=== PATIENT | female | born 1940 | race Caucasian/White ===

== ENCOUNTER → 2016-11-04 08:09 | Outpatient (CLI) | payer MEDICARE, OTHER ==
[2012-07-19 06:50] VITALS: BMI 26.7
== END | disposition home or self-care (01) ==
LOC: D.US 08:09
DX: R94.5 Abnormal results of liver function studies (principal)

== ENCOUNTER → 2017-07-05 08:10 | Outpatient (CLI) | payer MEDICARE, OTHER ==
[2012-07-19 06:50] VITALS: BMI 26.7
== END | disposition home or self-care (01) ==
LOC: D.US 08:10
DX: R94.5 Abnormal results of liver function studies (principal)

== ENCOUNTER → 2017-07-07 07:39 | Outpatient (CLI) | payer MEDICARE, OTHER ==
[2012-07-19 06:50] VITALS: BMI 26.7
== END | disposition home or self-care (01) ==
LOC: D.CT 07:39
DX: K76.89 Other specified diseases of liver (principal)

== ENCOUNTER → 2017-08-06 10:55 | Outpatient (CLI) | payer MEDICARE, OTHER ==
[2012-07-19 06:50] VITALS: BMI 26.7
[2017-08-06 12:15] LABS: HEMATOCRIT 41.5 % (36.0-48.0); HEMOGLOBIN 14.4 g/dL (12-16); MCH 33.1 pg (26.0-34.0); MCHC 34.7 g/dL (31.0-37.0); MCV 95.4 fL (80.0-100.0); MEAN PLATELET VOLUME 9.5 fL (7.4-10.4); PLATELET COUNT 266 10x3/uL (130-400); RBC 4.35 10x6/uL (4.00-5.40); RDW 13.1 % (11.5-14.5); WBC 8.3 10x3/uL (4.8-10.8)
[2017-08-06 12:39] LABS: % SATURATION 30 % (15-55); APTT 33.7 SECONDS (22.8-39.4); INR 1.11 (0.85-1.17); IRON 135 ug/dl (35-150); PROTIME 13.9 SECONDS (11.6-15.0); TOTAL IRON BIND CAPACITY 439 ug/dl (260-445); UNSAT IRON BIND CAPACITY 304 ug/dl (150-375)
[2017-08-06 12:44] LABS: EOSINOPHILS 1 % (0-7); LYMPHOCYTES 55 % (15-50); MONOCYTES 4 % (2-11); NEUTROPHILS 40 % (40-80); PLATELET ESTIMATE NORMAL
[2017-08-06 12:52] LABS: ALKALINE PHOSPHATASE 80 U/L (46-116); ALT (SGPT) 111 U/L (10-68); BILIRUBIN - DIRECT 0.25 mg/dL (0.00-0.30); BILIRUBIN - INDIRECT 1.07 mg/dL (0.00-1.00); BILIRUBIN - TOTAL 1.32 mg/dL (0.2-1.3); CALC OSMOLALITY 279 mosm/kg (275-300); CALCIUM 9.8 mg/dL (8.5-10.1); CARBON DIOXIDE 29.2 mmol/L (21.0-32.0); CHLORIDE - SERUM 104 mmol/L (98-107); CHOL - HDL RATIO 4.1 ratio (2.3-4.1); CHOLESTEROL, TOTAL 182 mg/dL (0-200); CREATININE - SERUM 0.6 mg/dL (0.6-1.3); FERRITIN 142 ng/mL (3-244); GAMMA GT 61 U/L (5-85); GLUCOSE 90 mg/dL (74-106); HDL CHOLESTEROL 44 mg/dL (32-96); LDL CHOLESTEROL 124 mg/dL (0-100); LDL-HDL RATIO 2.8 ratio (1.5-3.5); POTASSIUM - SERUM 4.2 mmol/L (3.5-5.1); PROTEIN - SERUM 7.8 g/dL (6.4-8.2); SODIUM 141 mmol/L (136-145); TRIGLYCERIDE 73 mg/dL (30-200); UREA NITROGEN 11 mg/dL (7-18); eGFR NON AFRICAN AMERICAN > 90 mL/min (90-120)
[2017-08-07 06:15] LABS: ALPHA FETOPROTEIN -(TUMOR MRK) 4.4 ng/mL (0.0-8.3)
[2017-08-07 08:16] LABS: HAPTOGLOBIN 111 mg/dL (34-200)
[2017-08-07 09:14] LABS: HEPATITIS C ANTIBODY 0.1 (0.0-0.9)
[2017-08-09 11:14] LABS: ANA REFLEX - DIRECT Negative (Negative)
[2017-08-09 13:13] LABS: MITOCHONDRIAL ANTIBODY 4.3 Units (0.0-20.0)
[2017-08-09 14:20] LABS: SMOOTH MUSCLE ABS (ACTIN) 21 Units (0-19)
== END | disposition home or self-care (01) ==
LOC: D.LAB 10:55
PROVIDERS: Internal Medicine Gastroenterology
DX: K76.89 Other specified diseases of liver (principal); R79.89 Other specified abnormal findings of blood chemistry; K59.09 Other constipation; R93.2 Abnormal findings on diagnostic imaging of liver and biliary tract; R94.5 Abnormal results of liver function studies

== ENCOUNTER → 2017-10-07 08:12 | Outpatient (CLI) | payer MEDICARE, OTHER ==
[2012-07-19 06:50] VITALS: BMI 26.7
== END | disposition home or self-care (01) ==
LOC: D.CT 08:12
DX: K76.89 Other specified diseases of liver (principal); R79.89 Other specified abnormal findings of blood chemistry

== ENCOUNTER → 2017-12-07 18:20 | Outpatient (CLI) | payer MEDICARE ==
[2012-07-19 06:50] VITALS: BMI 26.7
== END | disposition home or self-care (01) ==
LOC: D.MAMMO 15:45
DX: Z12.31 Encounter for screening mammogram for malignant neoplasm of breast (principal)

== ENCOUNTER → 2018-02-09 08:44 | Outpatient (CLI) | payer MEDICARE, OTHER ==
[2012-07-19 06:50] VITALS: BMI 26.7
[2018-02-09 10:14] LABS: ALBUMIN 3.7 g/dL (3.4-5.0); BILIRUBIN - DIRECT 0.22 mg/dL (0.00-0.30); BILIRUBIN - INDIRECT 0.69 mg/dL (0.00-1.00); BILIRUBIN - TOTAL 0.91 mg/dL (0.2-1.3)
[2018-02-10 11:21] LABS: ANA REFLEX - DIRECT Negative (Negative)
[2018-02-11 17:12] LABS: SMOOTH MUSCLE ABS (ACTIN) 18 Units (0-19)
== END | disposition home or self-care (01) ==
LOC: D.LAB 02-04 10:30
PROVIDERS: Internal Medicine Gastroenterology
DX: K76.89 Other specified diseases of liver (principal); Z00.01 Encounter for general adult medical examination with abnormal findings; R79.89 Other specified abnormal findings of blood chemistry

== ENCOUNTER → 2018-04-15 07:45 | Outpatient (CLI) | payer MEDICARE, OTHER ==
[2012-07-19 06:50] VITALS: BMI 26.7
== END | disposition home or self-care (01) ==
LOC: D.US 07:45
DX: K74.60 Unspecified cirrhosis of liver (principal); K76.0 Fatty (change of) liver, not elsewhere classified

== ENCOUNTER 2018-12-27 08:00 | Outpatient (CLI) | payer MEDICARE, OTHER ==
[2012-07-19 06:50] VITALS: BMI 26.7
== END 2018-12-27 23:59 | disposition home or self-care (01) ==
LOC: D.MAMMO 08:00
PROVIDERS: ATTEND Family Medicine
DX: Z12.31 Encounter for screening mammogram for malignant neoplasm of breast (principal)